=== PATIENT | female | born 2000 | race Caucasian/White ===

== ENCOUNTER 2022-06-28 16:46 | Emergency (ER) | payer OTHER, SELFPAY ==
[2022-06-28 16:48] VITALS: BP 145/108; PULSE 132; RESP 19; TEMP 35.9; O2SAT 97; BMI 29.2
--- NOTE | 2022-06-28 17:17 | CT_ITS ---
EXAM: CT ANGIOGRAPHY HEAD WITHOUT AND WITH INTRAVENOUS CONTRAST CLINICAL INDICATION: severe headache, FHx cerebral aneurysm TECHNIQUE: [place]/head CT angiography protocol performed without and with intravenous contrast. This CT exam was performed using one or more of the following dose reduction techniques: automated exposure control, adjustment of the mA and/or kV according to patient size, and/or use of iterative reconstruction technique. This report was created using [employer] report generation technology. MIP reconstructed images were created and reviewed. CONTRAST: 100 cc Isovue-370 IV. RADIATION DOSE: CTDIvol = 26.65 mGy, DLP = 1101.10 mGy-cm. COMPARISON: None. FINDINGS: VASCULATURE: RIGHT INTERNAL CAROTID ARTERY: No acute findings. No significant stenosis at the intracranial/visualized segments. No aneurysm. RIGHT ANTERIOR CEREBRAL ARTERY: Unremarkable. No significant stenosis at the visualized segments. Anterior communicating artery is present. No aneurysm. RIGHT MIDDLE CEREBRAL ARTERY: Unremarkable. No significant stenosis at the visualized segments. No aneurysm. RIGHT POSTERIOR CEREBRAL ARTERY: Unremarkable. No occlusion or significant stenosis. No aneurysm. RIGHT VERTEBRAL ARTERY: Unremarkable as visualized. No significant stenosis at the intradural/visualized segments. No aneurysm. LEFT INTERNAL CAROTID ARTERY: No acute findings. No significant stenosis at the intracranial/visualized segments. No aneurysm. LEFT ANTERIOR CEREBRAL ARTERY: Unremarkable. No significant stenosis at the visualized segments. No aneurysm. LEFT MIDDLE CEREBRAL ARTERY: Unremarkable. No significant stenosis at the visualized segments. No aneurysm. LEFT POSTERIOR CEREBRAL ARTERY: Unremarkable. No occlusion or significant stenosis. No aneurysm. LEFT VERTEBRAL ARTERY: Unremarkable as visualized. No significant stenosis at the intradural/visualized segments. No aneurysm. BASILAR ARTERY: Unremarkable. No significant stenosis. No aneurysm. OTHER VASCULATURE: No vascular malformation. HEAD: BRAIN AND EXTRA-AXIAL SPACES: Unremarkable. No intra- or extra-axial hemorrhage. No evidence of acute infarct. No intracranial mass or mass effect. There is preservation of the cummins/white matter interface. Posterior fossa structures are unremarkable. Ventricles are appropriate for age. No hydrocephalus. Basal cisterns are patent. BONES/JOINTS: Unremarkable. No discrete lytic or blastic abnormalities. SINUSES: Unremarkable as visualized. Clear. MASTOID AIR CELLS: Unremarkable as visualized. Clear. ORBITS: Visualized globes, extraocular muscles, optic nerves and retrobulbar fat appear unremarkable. CT/CTA Head W/WO Contrast IMPRESSION: Negative head CTA. Electronically Signed: Gabriel Miller MD at 18:47 EST ,
--- NOTE | 2022-06-28 17:19 | EX.ED.DYSGE1 ---
HPI History of Present Illness Chief Complaint: General Illness Informant: patient Narrative Narrative: Patient presents for disequilibrium that she is is relatively mild, malaise, and sensation that my entire body is vibrating without paresthesias or zjyd-rnb-wwgdkvy or numbness/weakness, although she feels a little weak all over, for the last week since she had a quickly worsening severe headache that was bifrontal, associated with nausea, photophobia, but no focal neurologic symptoms, which is very unusual for her since she does not get headaches typically. She states when she got the headache, she eventually got to sleep and woke up and it was better but she has felt like this ever since. She denies any earache or tinnitus. She had COVID in April but no illness since then. She is otherwise healthy and takes glki-wvj-azbvmjw medications and no prescriptions. She denies having any diplopia with a headache worsens, nor other vision changes. She is taken no other aweq-ano-bhmipyt medications recently. Patient has a great uncle who has a cerebral aneurysm; no other family members with them that she knows of. PFSH PFSH Medical History no medical history no medical history Home Medications metoclopramide HCl 10 mg tablet 10 mg PO Q6H PRN nausea or migraine #14 tabs 06/28/22 [Rx Last Taken Unknown] Allergy/AdvReac Type Severity Reaction Status Date / Time montelukast [From [facility]] Allergy Diarrhea Verified 06/28/22 16:52 Social History Smoking Status: Never smoker [facility] ED Constitutional Constitutional ED: Reports as per HPI and malaise; Denies chills or fever(s) Eyes Eyes: Denies change in vision or diplopia ENT ENT ED: Denies rhinorrhea or sore throat Cardiovascular Cardiovascular: Denies chest pain or palpitations Respiratory/Chest Respiratory/Chest: Denies cough or dyspnea Gastrointestinal Gastrointestinal: Denies abdominal pain, diarrhea, nausea or vomiting Genitourinary Genitourinary ED: Denies dysuria or hematuria Musculoskeletal Musculoskeletal: Denies back pain or neck pain Integumentary Denies abscess or rash Neurologic Neurologic: Reports as per HPI and disequilibrium; Denies abnormal gait, headache(s), paresthesias or weakness Psychiatric Psychiatric: Denies anxiety or suicidal thoughts EXAM Physical Exam Const Vital Signs: 06/28/22 16:48 06/28/22 17:39 Temperature 96.7 F L Temperature Source Temporal Pulse Rate 132 H Respiratory Rate 19 H Respiratory Effort Normal Blood Pressure 145/108 H Blood Pressure Mean 120 Pulse Ox 97 Oxygen Delivery Method Room Air Positive well nourished and well developed General Appearance ED: well developed and NAD HEENT Reports moist mucous membranes normocephalic and atraumatic Eyes PERRL and EOMs intact bilaterally Neck full ROM and supple Resp normal respiratory effort and clear to auscultation bilaterally Cardio regular rate, regular rhythm and no murmurs GI non-tender and non-distended Auscultation: normoactive bowel sounds Palpation: soft Back/Spine no CVA tenderness General Back: other FROM Extremity normal to inspection General Extremety ED: Negative for edema, pulses abnormal or tenderness General Extremity: Negative for edema or pulses abnormal Neuro oriented x3, CN's II-XII intact bilaterally and no sensory deficits noted Neuro Narrative: Normal neuro exam. Normal visual macdonald. Normal gegoua-ji-siia and qbua-th-jrjz bilaterally. Negative Romberg. Normal gait without ataxia. NIHSS 0. Sensorium / Orientation: awake and alert Motor Exam: strength 5/5 throughout Psych mental status grossly normal Skin no rashes or lesions noted and no wounds MDM MDM MDM Narrative Medical decision making narrative: Patient was given a dose of meclizine while work-up was performed, she did not have any changes but she is ambulatory without ataxia. I reviewed the CT images, they appear unremarkable, radiology in agreement. My interpretation of the CT agrees with that of the radiologist. Her labs are normal showing no metabolic abnormalities or anemia. My concern was that this patient could have had an aneurysm or sentinel bleed/subarachnoid hemorrhage given a severe unusual headache that she had, and the fact that she presents 1 week year after symptoms, so a plain CT could miss a small subarachnoid hemorrhage in that amount of time. With a negative CTA, showing no signs of any aneurysms, or bleeding or anything else acute, I am comfortable discharging the patient home telling her she very unlikely had subarachnoid hemorrhage a week ago. The etiology of her current symptoms is unknown. I will give her a dose of Reglan prior to discharge as well as a prescription for some more in case it helps, in case this has anything to do with the headache that she had which certainly could have been migraine, for unknown reasons. Follow-up advised if symptoms do not improve/resolve within the next 3 or so days. She is comfortable with that plan. Lab Data Attestation: I reviewed the patient's lab results. Labs: Laboratory Results - last 24 hr 06/28/22 06/28/22 17:44 17:44 WBC 8.4 RBC 5.05 Hgb 14.1 Hct 43.9 MCV 86.9 MCH 27.9 MCHC 32.1 RDW Std Deviation 38.1 RDW Coeff of Nicole 11.9 Plt Count 278 MPV 9.0 Immature Gran % (Auto) 0.400 Neut % (Auto) 58.2 Lymph % (Auto) 30.0 [place] % (Auto) 8.4 Eos % (Auto) 2.5 Baso % (Auto) 0.5 Absolute Neuts (auto) 4.9 Absolute Lymphs (auto) 2.51 Nucleated RBC % 0 Sodium 139 Potassium 3.8 Chloride 106 Carbon Dioxide 27.0 Anion Gap 6 BUN 9 Creatinine 0.75 Estim Creat Clear Calc 98.15 Est GFR (MDRD) Af Amer 124 Est GFR (MDRD) Non-Af 103 BUN/Creatinine Ratio 12.0 Glucose 117 H Calcium 9.1 Radiography Diagnostic Testing: Clinical Impression(s) from Imaging Studies Head CTA 06/28/22 17:17 IMPRESSION: Negative head CTA. Electronically Signed: Gabriel Miller MD at 18:47 EST , Discharge Plan Triage Chief Complaint: General Illness ED Provider: Jayant Hunt Dx/Rx/DC Orders Clinical Impression: Headache, migraine, Dysequilibrium Instructions: ED Dizziness, Uncertain Cause, ED, Migraine (Classical) Prescriptions: New metoclopramide HCl [metoclopramide HCl] 10 mg tablet 10 mg PO Q6H PRN (Reason: nausea or migraine) Qty: 14 0RF Primary Care Provider: Care Physician,No Primary Referrals: [facility] Doctor,Out of [Non-Staff] - Doctor,Your [Non-Staff] - 3-5 Days if not improving Disposition Disposition: Home, Self Care
[2022-06-28] MEDS: Meclizine HCl 25 MG Tablet PO (17:38)
[2022-06-28 17:58] LABS: Absolute Lymphocyte Count 2.51 X10^3/uL (0.83-4.51); Absolute Neutrophil Count 4.9 X10^3/uL (2.0-7.7); Basophil# 0.04 X10^3/uL; Basophil% 0.5 % (0-1); Eosinophil# 0.21 X10^3/uL; Eosinophils% 2.5 % (0-5); Hematocrit 43.9 % (37-47); Hemoglobin 14.1 g/dL (12.0-15.0); Lymphocyte # 2.51 X10^3/ul (0.83-4.51); Mean Corp Hgb Conc 32.1 g/dL (32-36); Mean Corpuscular Hgb 27.9 pg (27.0-32.0); Mean Corpuscular Volume 86.9 fL (81-99); Monocyte% 8.4 % (0-10); NRBC Flagged by Analyzer 0 % (0-5); Neutrophil # 4.89 X10^3/uL (2.7-7.7); Neutrophil % 58.2 % (47-70); Platelet Count 278 K/mm3 (150-450); RBC Distribution Width CV 11.9 % (11.6-14.6); RBC Distribution Width SD 38.1 fl (35.1-43.9); Red Blood Count 5.05 M/mm3 (4.2-5.4); White Blood Count 8.4 K/mm3 (4.4-11.0)
[2022-06-28 18:13] LABS: Anion Gap 6 (5-15); BUN 9 mg/dL (7-18); Calcium,Total 9.1 mg/dL (8.5-10.1); Chloride 106 mmol/L (98-107); Creatinine, Serum 0.75 mg/dL (0.55-1.02); EST Glomerular Filtration Rate 103 mL/min (>60); Est Glom Filt Rate - Afr Amer 124 mL/min (>60); Estimated Creatinine Clearance 98.15 ml/min; Glucose 117 mg/dL (74-106); Potassium 3.8 mmol/L (3.5-5.1); Sodium Level 139 mmol/L (136-145)
[2022-06-28] MEDS: Metoclopramide 10 MG Tablet PO (20:10)
== END 2022-06-28 20:11 | disposition home or self-care (01) ==
PROVIDERS: Emergency Provider Emergency Medicine; Visit Provider Emergency Medicine
DX: G43.909 Migraine, unspecified, not intractable, without status migrainosus (principal); R42 Dizziness and giddiness
CPT/HCPCS: 70496; 80048; 85025; 96360; 99284; J7030; Q9967; A4216